=== PATIENT | female | born 1945 | race Caucasian/White ===

== ENCOUNTER → 2016-12-14 | Outpatient (CLI) | payer OTHER | LOC: FIMAGING 13:03 | DX: Z12.31 Encounter for screening mammogram for malignant neoplasm of breast (principal) | CPT/HCPCS: G0202 ==

== ENCOUNTER → 2016-12-23 | Outpatient (CLI) | payer OTHER | LOC: FIMAGING 11:51 | PROVIDERS: ATTEND Internal Medicine | DX: Z12.39 Encounter for other screening for malignant neoplasm of breast (principal); R92.2 Inconclusive mammogram | CPT/HCPCS: G0206 ==

== ENCOUNTER → 2017-12-01 | Outpatient (CLI) | payer OTHER | LOC: BMCIMAGING 11:52 | PROVIDERS: ATTEND Internal Medicine | DX: J18.9 Pneumonia, unspecified organism (principal); K44.9 Diaphragmatic hernia without obstruction or gangrene ==

== ENCOUNTER → 2017-12-01 | Outpatient (CLI) | payer OTHER ==
[~2017-12-01] MED LIST: IOPAMIDOL (ISOVUE 370) 100 ML BTL IV ONE
== END ==
LOC: FIMAGING 15:56
PROVIDERS: ATTEND Internal Medicine
DX: J98.4 Other disorders of lung (principal); R09.02 Hypoxemia
CPT/HCPCS: 71275; Q9967

== ENCOUNTER 2018-01-03 12:42 | Day surgery (SDC) | payer OTHER ==
[2018-01-03] MEDS ORDERED: NS 500 ML IV ONE (12:58)
[2018-01-03] MEDS ORDERED: EPINEPHrine 1 MG/ML INJ ONE (13:38)
[2018-01-03] MEDS ORDERED: LIDOCAINE 2% JELLY 5 ML TUBE ONE (13:38)
[2018-01-03] MEDS ORDERED: LIDOCAINE 1% 300 MG/30 ML SDV ONE (13:38)
[2018-01-03] MEDS ORDERED: LIDOCAINE HCL 4% TOPICAL SOLN 50ML ONE (13:40)
[2018-01-03] MEDS ORDERED: ALBUTEROL 3 ML DEYVIAL ONE (13:41)
[2018-01-03] MEDS ORDERED: MIDAZOLAM 2 MG/2 ML VIAL ONE (13:55)
[2018-01-03] MEDS ORDERED: fentaNYL 100 MCG/2 ML INJ ONE (13:55)
--- NOTE | 2018-01-03 13:56 | PDHPUP ---
History & Physical Update H&P update statement: This history and physical update is based on an assessment of the patient which was completed after admission or registration (within 24 hours), but prior to the surgery/procedure. H&P update: H&P reviewed & patient examined, no change in patient's condition since H&P completed
--- NOTE | 2018-01-03 13:56 | PDPROPOC ---
Sedation Plan of Care Sedation Plan of Care: vital signs stable, mental status noted, patient educated of risks, benefits, alternatives, patient can tolerate sedation ASA Classification: ASA 2 Planned drugs: fentanyl, midazolam Mallampati Score: Class 2 Mallampati Reference Image:
[2018-01-03] MEDS ORDERED: MIDAZOLAM 2 MG/2 ML VIAL IVP ONE (14:14)
[2018-01-03] MEDS ORDERED: LIDOCAINE 2% JELLY 30 ML TUBE MM ONE (14:14)
[2018-01-03] MEDS ORDERED: fentaNYL 100 MCG/2 ML INJ IVP ONE (14:14)
[2018-01-03] MEDS ORDERED: LIDOCAINE HCL 4% TOPICAL SOLN 50ML MM ONE (14:14)
[2018-01-03] MEDS ORDERED: LIDOCAINE 1% 300 MG/30 ML SDV IH ONE (14:14)
--- NOTE | 2018-01-03 14:59 | BVPULMO ---
[facility] Surgical Services- Pulmonology Patient Name: Luis Sands Procedure Date: 01/03/2018 1:56 PM Patient Type: Outpatient Attending MD/ER Physician: Ozzie Castañeda MD Procedure: Bronchoscopy Indications: Diagnostic bronchoalveolar lavage Providers: Ozzie Castañeda MD Medicines: Lidocaine 1% applied to cords 2 mL, Lidocaine 1% applied to the tracheobronchia l tree 3 mL, Fentanyl 125 mcg IV, Midazolam 3 mg mg IV Complications: No immediate complications Procedure: After informed consent, a time out was performed. N95 masks were worn, and the procedure was done in a negative pressure room. The patient was given appropria te topical anesthesia and intravenous sedation. The fiberopic bronchoscope was pas sed via a bite block orally into the larynx and subsequently into the lower trachea bronchial tree. Throughout the procedure, the patient's blood pressure, pulse, and oxygen saturations were monitored continuously. The Bronchoscope (Video) was introduced through the mouth and advanced to the tracheobronchial tree of both lungs. The procedure was accomplished without difficulty. The patient tolerated the procedure well. Findings: Specific locations: The following were directly visualized, and are normal: lar ynx, vocal cord motion, trachea, wilma, left mainstem bronchus, right mainstem bron chus, bronchus intermedius, left upper lobe including subsegments,left lower lobe including subsegments, right upper lobe including subsegments, right middle lob e including subsegments, right lower lober including subsegments. Transbronchial biopsies of a lesion were performed in the apical segment of the right upper lobe and in the anterior segment of the right upper lobe using [facility] [address] eps. The procedure was guided by fluoroscopy. Transbronchial biopsy technique was selected because the sampling site was not visible endoscopically. The sampling device penetrated the full thickness of the bronchial wall to obtain the biopsy of lung tissue. Five biopsy passes were performed. Five biopsy samples were obtain ed. Bronchoalveolar lavage was performed in the lung. 150 mL of fluid were instille d. 80 mL were returned. The return was clear. There were no mucoid plugs in the retur n fluid. Post Op Diagnosis: - Bronchoalveolar lavage - Transbronchial lung biopsies were performed. - Bronchoalveolar lavage was performed. - The airway examination was normal. Estimated Blood Loss: Estimated blood loss: none. Recommendation: - The patient will be observed post-procedure, until all discharge criteria are met. - The patient was advised to call or return to the clinic if there are signs or symptoms suggesting a complication/adverse reaction from the procedure. Ozzie Castañeda MD Ozzie Castañeda MD 01/03/2018 2:58:56 PM This report has been signed electronicallyOzzie Castañeda MD Number of Addenda: 0 Note Initiated On: 01/03/2018 1:56 PM [email or web address]
[2018-01-03 15:49] VITALS: BP 120/67
== END 2018-01-03 16:20 | disposition home or self-care (01) ==
LOC: FSGY 12:42
PROVIDERS: ATTEND Internal Medicine Critical Care Medicine
DX: J84.9 Interstitial pulmonary disease, unspecified (principal); J69.0 Pneumonitis due to inhalation of food and vomit; R09.02 Hypoxemia; F41.8 Other specified anxiety disorders; K21.9 Gastro-esophageal reflux disease without esophagitis; Z96.649 Presence of unspecified artificial hip joint
CPT/HCPCS: J0171; J2250; J3010; J7613

== ENCOUNTER → 2018-01-18 | Outpatient (CLI) | payer OTHER | LOC: FIMAGING 08:55 | PROVIDERS: ATTEND Internal Medicine Critical Care Medicine | DX: K44.9 Diaphragmatic hernia without obstruction or gangrene (principal) ==

== ENCOUNTER → 2018-05-21 | Outpatient (CLI) | payer OTHER | LOC: FIMAGING 13:15 | PROVIDERS: ATTEND Internal Medicine Critical Care Medicine | DX: J84.112 Idiopathic pulmonary fibrosis (principal); R91.8 Other nonspecific abnormal finding of lung field; K44.9 Diaphragmatic hernia without obstruction or gangrene; K76.89 Other specified diseases of liver ==

== ENCOUNTER → 2018-12-20 | Outpatient (CLI) | payer OTHER | LOC: EMCIMAGING 10:08 | PROVIDERS: ATTEND Internal Medicine Critical Care Medicine | DX: J84.112 Idiopathic pulmonary fibrosis (principal); R91.8 Other nonspecific abnormal finding of lung field; R09.02 Hypoxemia; K44.9 Diaphragmatic hernia without obstruction or gangrene; N28.1 Cyst of kidney, acquired; M51.34 Other intervertebral disc degeneration, thoracic region | CPT/HCPCS: 71250-PN ==